=== PATIENT | male | born 1935 | race Two or more races ===

== ENCOUNTER 2020-03-20 11:06 | Outpatient (CLI) | payer MEDICARE, MEDICAID ==
[2020-03-20 12:33] LABS: ANION GAP 6 mmol/L (5-15); CALCIUM 9.1 mg/dL (8.5-10.1); CHLORIDE 107 mmol/L (98-107)
[2020-03-20 12:37] LABS: ALANINE AMINOTRANSFERASE 17 U/L (12-78); ALBUMIN 3.7 g/dL (3.4-5.0); ALKALINE PHOSPHATASE 98 U/L (45-117); BILIRUBIN,TOTAL 0.6 mg/dL (0.2-1.0); CREATININE 1.06 mg/dL (0.55-1.02); TOTAL PROTEIN 7.5 g/dL (6.4-8.2)
[2020-03-20 12:46] LABS: BASOPHILS % (AUTO) 1 % (0-1); EOSINOPHILS % (AUTO) 3 % (1-7); LYMPHOCYTES % (AUTO) 19 % (22-44); MEAN CORPUSCULAR HEMOGLOBIN 28.9 pg (27.0-34.8); MEAN CORPUSCULAR HGB CONC 32.4 g/dL (32.4-35.8); MONOCYTES % (AUTO) 9 % (2-9); NEUTROPHILS % (AUTO) 68 % (42-75); PLATELET COUNT 243 x10^3/uL (130-400); RED BLOOD COUNT 4.95 x10^6/uL (3.82-5.3); RED CELL DISTRIBUTION WIDTH 14.1 % (9.6-15.2)
[2020-03-20 12:51] LABS: INTERNATIONAL NORMALIZED RATIO 0.98 (0.93-1.1); PROTHROMBIN TIME 10.1 Seconds (9.6-11.5)
[2020-03-20 12:58] LABS: MD NO
[2020-03-21] MEDS ORDERED: LISI-170 PO (10:40)
[2020-03-21] MEDS ORDERED: BRIM5DRO2 EACHEYE (10:40)
[2020-03-21] MEDS ORDERED: TERA1CAP3 PO (10:40)
[2020-03-21] MEDS ORDERED: TAMS-11 PO (10:40)
== END 2020-03-20 23:59 | disposition home or self-care (01) ==
LOC: EDSEX → STAR 11:06
PROVIDERS: ATTEND Orthopaedic Surgery
DX: Z01.812 Encounter for preprocedural laboratory examination (principal); M17.12 Unilateral primary osteoarthritis, left knee; M25.562 Pain in left knee; I51.7 Cardiomegaly; Z20.828 Contact with and (suspected) exposure to other viral communicable diseases
CPT/HCPCS: 36415; 80053; 83036; 85025; 85610; 85730; 87081; 87635; 87806; 93005; G0475

== ENCOUNTER 2020-03-24 10:29 | Observation (INO) | payer MEDICARE, MEDICAID ==
[~2020-03-24] VITALS: Ht 167.6 cm; Wt 77.9 kg
[~2020-03-24 10:29] MED LIST: BRIM5DRO2 EACHEYE; EPINEPHRINE 1 MG/ML, 1ML ONE; KETOROLAC 60 MG/2 ML ONE; LISI-170 PO; ROPIvacaine/PF 0.2%, 20 ML ONE; SODIUM CHLORIDE 0.9% 50 ML ONE; TAMS-11 PO; TERA1CAP3 PO; TRANEXAMIC ACID 100 MG/ML, 10ML ONE; VANCOMYCIN 1,000 MG ONE
[2020-03-24] MEDS ORDERED: ACETAMINOPHEN 500 MG TABLET PO STA (11:23)
[2020-03-24] MEDS ORDERED: GABAPENTIN 300 MG CAPSULE PO ONE (11:23)
[2020-03-24] MEDS ORDERED: CHLORHEXIDINE 15 ML UDC MM ONE (11:30)
[2020-03-24] MEDS ORDERED: LACTATED RINGERS 1,000 ML IV SCH (11:30)
[2020-03-24] MEDS ORDERED: FENTANYL PF 250 MCG/5ML ONE (11:45)
[2020-03-24] MEDS ORDERED: BUPIVACAINE/PF 0.25% ONE (11:46)
[2020-03-24] MEDS ORDERED: NEOSTIGMINE 1 MG/ML, 10ML ONE (11:55)
[2020-03-24] MEDS ORDERED: DEXAMETHASONE 4 MG/ML, 1ML ONE (11:55)
[2020-03-24] MEDS ORDERED: PROPOFOL 10 MG/ML, 20ML ONE (11:55)
[2020-03-24] MEDS ORDERED: ROCURONIUM 10MG/ML,5ML ONE (11:55)
[2020-03-24] MEDS ORDERED: CEFAZOLIN 1,000 MG ONE (11:55)
[2020-03-24] MEDS ORDERED: ONDANSETRON 2MG/ML, 2ML ONE (11:55)
[2020-03-24] MEDS ORDERED: SUCCINYLCHOLINE 20 MG/ML, 10ML ONE (11:55)
[2020-03-24] MEDS ORDERED: GLYCOPYRROLATE 0.2MG/1ML, 5ML ONE (11:55)
[2020-03-24] MEDS ORDERED: FLU VACC QS2020-21(6MOS UP)/PF 60MCG/0.5 ML SYR IM-VACC ONE ×2 (12:00→18:00)
[2020-03-24] MEDS ORDERED: OXYcodone IR 5MG TABLET PO PRN (13:00)
[2020-03-24] MEDS ORDERED: ONDANSETRON 2MG/ML, 2ML IVPush PRN ×2 (13:00→13:30)
[2020-03-24] MEDS ORDERED: HYDROmorphone 1 MG/ML, 1ML INJ IVPush PRN ×2 (13:00→13:30)
[2020-03-24] MEDS ORDERED: DIPHENHYDRAMINE 50 MG/ML, 1ML IVPush PRN (13:00)
[2020-03-24] MEDS ORDERED: METHOCARBAMOL 1,000 MG in DEXTROSE 5% 100 ML IV PRN (13:30)
[2020-03-24] MEDS ORDERED: ENALAPRILAT 1.25 MG/ML, 2ML IV PRN (13:30)
[2020-03-24] MEDS ORDERED: OXYcodone 5 MG/5 ML ORAL.SOL UDC PO PRN (13:30)
[2020-03-24] MEDS ORDERED: hydrALAzine 20 MG/ML, 1ML IV PRN (13:30)
[2020-03-24] MEDS ORDERED: METOPROLOL 1 MG/ML, 5ML IV PRN (13:30)
[2020-03-24] MEDS ORDERED: PROMETHAZINE 25 MG/ML, 1ML IVPush PRN (13:30)
[2020-03-24] MEDS ORDERED: LABETALOL 5MG/ML, 20ML IV PRN (13:30)
[2020-03-24] MEDS ORDERED: FENTANYL PF 100 MCG/2ML IV PRN (13:30)
[2020-03-24] MEDS ORDERED: PROMETHAZINE 25 MG SUPP PR PRN (13:30)
[2020-03-24] MEDS ORDERED: TRANEXAMIC ACID 1,000 MG in SODIUM CHLORIDE 0.9% 100 ML IVPB ONE (14:00)
[2020-03-24] MEDS ORDERED: KETOROLAC 30 MG/1 ML ONE (14:42)
[2020-03-24] MEDS ORDERED: FENTANYL PF 100 MCG/2ML ONE (14:42)
[2020-03-24] MEDS ORDERED: ENALAPRILAT 1.25 MG/ML, 2ML ONE (15:25)
[2020-03-24] MEDS ORDERED: [UNRECOGNIZED DRUG - REMARK] MC SCH (16:30)
[2020-03-24] MEDS ORDERED: ONDANSETRON ODT 4 MG PO PRN (16:30)
[2020-03-24] MEDS ORDERED: ALUMINUM/MAG/SIMETHICONE 30 ML UDC PO PRN (16:30)
[2020-03-24] MEDS ORDERED: ACETAMINOPHEN 325 MG TABLET PO PRN ×2 (16:30→18:00)
[2020-03-24] MEDS ORDERED: MAGNESIUM HYDROXIDE 8%, 30ML UDC PO PRN (16:30)
[2020-03-24] MEDS ORDERED: DIPHENHYDRAMINE 25 MG CAPSULE PO PRN (16:30)
[2020-03-24] MEDS ORDERED: SENNA/DOCUSATE TABLET PO PRN (16:30)
[2020-03-24] MEDS ORDERED: POLYETHYLENE GLYCOL 17 GM PACKET PO PRN (16:30)
[2020-03-24] MEDS: POTASSIUM CHLORIDE 20 MEQ in D5%-0.45% NACL 1,000 ML IV SCH (16:30)
[2020-03-24] MEDS ORDERED: PSYLLIUM PACKET PO PRN (16:30)
[2020-03-24] MEDS ORDERED: LISINOPRIL 20 MG TABLET ONE (17:26)
[2020-03-24] MEDS ORDERED: LISINOPRIL 20 MG TABLET PO ONE (17:30)
[2020-03-24] MEDS ORDERED: LABETALOL 5MG/ML, 20ML IVPush PRN (17:30)
[2020-03-24] MEDS: KETOROLAC 30 MG/1 ML IV SCH (17:34)
[2020-03-24] MEDS: ASPIRIN 81 MG TABLET EC PO SCH ×2 (17:36→20:31)
[2020-03-24 20:30] VITALS: BP 182/84
[2020-03-24] MEDS: CEFAZOLIN PMX 1GM/50ML 50 ML IVPB SCH (20:31)
[2020-03-24] MEDS: DOCUSATE 100 MG CAPSULE PO SCH (20:31)
[2020-03-24] MEDS: TIMOLOL EACHEYE SCH (21:00)
[2020-03-24] MEDS: BRIMONIDINE EACHEYE SCH (21:00)
[2020-03-25] MEDS: POTASSIUM CHLORIDE 20 MEQ in D5%-0.45% NACL 1,000 ML IV SCH ×2 (00:21→12:42)
[2020-03-25 01:17] VITALS: BP 147/89
[2020-03-25] MEDS: KETOROLAC 30 MG/1 ML IV SCH ×2 (03:30→09:55)
[2020-03-25 04:21] VITALS: BP 128/81
[2020-03-25] MEDS: CEFAZOLIN PMX 1GM/50ML 50 ML IVPB SCH (04:58)
[2020-03-25] MEDS ORDERED: DEXAMETHASONE 4 MG/ML, 1ML IVPush ONE (06:00)
[2020-03-25 07:45] VITALS: BP 161/78
[2020-03-25] MEDS: ASPIRIN 81 MG TABLET EC PO SCH (08:41)
[2020-03-25] MEDS: DOCUSATE 100 MG CAPSULE PO SCH (08:42)
[2020-03-25] MEDS: TIMOLOL EACHEYE SCH (08:44)
[2020-03-25] MEDS: BRIMONIDINE EACHEYE SCH (08:44)
[2020-03-25] MEDS ORDERED: LISINOPRIL 20 MG TABLET PO SCH (09:00)
[2020-03-25] MEDS ORDERED: TERAZOSIN 1MG CAPSULE PO SCH (09:00)
[2020-03-25] MEDS ORDERED: TAMSULOSIN 0.4 MG CAP.ER.24H PO SCH (09:00)
[2020-03-25] MEDS ORDERED: FLU VACCINE PER PHARMACY IM ONE (09:30)
[2020-03-25] MEDS ORDERED: FLU VACC QS2020-21(6MOS UP)/PF 60MCG/0.5 ML SYR IM ONE (10:00)
== END 2020-03-25 13:11 | disposition home or self-care (01) ==
LOC: OUT 10:29 → ORIP 12:34 → 4NE 16:00
PROVIDERS: ADMIT Orthopaedic Surgery; ATTEND Orthopaedic Surgery
DX: M17.12 Unilateral primary osteoarthritis, left knee (principal); I10 Essential (primary) hypertension; Z79.899 Other long term (current) drug therapy; Z23 Encounter for immunization
CPT/HCPCS: 27447; 36415; 73560; 82962; 85014; 85018; 90686; 96361; 96365; 96375; 96376; 97161; 97165; C1713; C1776; G0008; G0378; J0171; J0330; J0690; J1100; J1885; J2405; J2704; J2710; J2795; J3010; J3480; J7120; J3370